=== PATIENT | male | born 1965 | race Caucasian/White ===

== ENCOUNTER 2024-09-27 06:11 | Emergency (ER) | payer OTHER ==
[~2024-09-27] VITALS: Ht 172.7 cm; Wt 74.8 kg
[~2024-09-27 06:11] MED LIST: LAMO5TAB3 PO
[2024-09-27 06:57] LABS: PLATELET COUNT (AUTO) 274 K/uL (152-348); RED BLOOD CELL COUNT(AUTO) 4.61 MIL/uL (4.06-5.63); RED CELL DISTRIBUTION WIDTH 13.0 % (12.1-16.2); WHITE BLOOD COUNT (AUTO) 6.4 K/uL (3.6-10.2)
[2024-09-27] MEDS: IV NORMAL SALINE 500 ML BAG IV ONE ×2 (07:00)
[2024-09-27 07:03] LABS: CREATININE 0.9 mg/dL (0.6-1.3); SODIUM SERUM 142 mmol/L (136-145); UREA NITROGEN, BLOOD 27 mg/dL (7-18)
[2024-09-27 07:08] LABS: ASPARTATE AMINOTRANSFERASE 18 U/L (15-37); TOTAL PROTEIN, SERUM 7.1 g/dL (6.4-8.2)
[2024-09-27] MEDS ORDERED: BUPR-96 PO (07:09)
[2024-09-27] MEDS ORDERED: LAMO100T17 PO (07:09)
[2024-09-27] MEDS: IV NORMAL SALINE 1000 ML BAG IV ONE (07:37)
[2024-09-27] MEDS ORDERED: LIDOCAINE 2%-EPI 1:100,000 20 ML VIAL ONE (07:57)
[2024-09-27] MEDS: LIDOCAINE 2%-EPI 1:100,000 20 ML VIAL IJ ONE (08:04)
[2024-09-27 09:00] VITALS: BP 144/97
[2024-09-27] MEDS ORDERED: CLINDAMYCIN HCL 150 MG CAPSULE ONE (09:11)
[2024-09-27] MEDS ORDERED: VANC125C5 PO (09:14)
[2024-09-27] MEDS: CLINDAMYCIN HCL 150 MG CAPSULE PO ONE (09:14)
[2024-09-27] MEDS ORDERED: DIPH1TAB PO (10:06)
[2024-09-27 10:10] VITALS: BP 140/93; O2SAT 95
== END 2024-09-27 10:12 | disposition home or self-care (01) ==
LOC: ER 06:20
DX: R55 Syncope and collapse (principal); R06.00 Dyspnea, unspecified; E86.0 Dehydration; G44.309 Post-traumatic headache, unspecified, not intractable; K21.9 Gastro-esophageal reflux disease without esophagitis; G47.33 Obstructive sleep apnea (adult) (pediatric); R19.7 Diarrhea, unspecified; Z88.2 Allergy status to sulfonamides; Z88.7 Allergy status to serum and vaccine; Z79.899 Other long term (current) drug therapy; Z87.39 Personal history of other diseases of the musculoskeletal system and connective tissue
CPT/HCPCS: 99285; 96360; 70450; 71045; 96361; 80076; 80048; 85025; 85730; 84484; 36415; 93005; 83605; J7040 ×2; A4606; A4663